=== PATIENT | male | born 1990 | race Caucasian/White ===

== ENCOUNTER 2018-05-18 10:15 | Emergency (ER) | payer SELFPAY ==
[~2018-05-18] VITALS: Ht 165.1 cm; Wt 82.0 kg
[2018-05-18 11:30] VITALS: BP 130/94
[2018-05-18] MEDS ORDERED: BUPIVACAINE HCL/PF 0.5% (5MG/ML) 10ML INFIL ONE (12:30)
== END 2018-05-18 15:58 | disposition home or self-care (01) ==
LOC: ER 11:07
DX: S61.142A Puncture wound with foreign body of left thumb with damage to nail, initial encounter (principal); F17.200 Nicotine dependence, unspecified, uncomplicated; W22.8XXA Striking against or struck by other objects, initial encounter; Y93.89 Activity, other specified; Y92.89 Other specified places as the place of occurrence of the external cause; Y99.8 Other external cause status
CPT/HCPCS: 73140; 99284; J3490